=== PATIENT | female | born 1955 | race Caucasian/White ===

== ENCOUNTER 2017-12-01 17:24 | Emergency (ER) | payer SELFPAY, OTHER | END 2017-12-01 20:23 | disposition left against medical advice (07) | LOC: FTE 17:24 → E/R 20:23 | DX: Z53.21 Procedure and treatment not carried out due to patient leaving prior to being seen by health care provider (principal) ==

== ENCOUNTER 2018-04-08 19:38 | Emergency (ER) | payer OTHER ==
[2018-04-08 21:17] LABS: URINE BLOOD (Dip) POC Negative (NEGATIVE); URINE GLUCOSE (Dip) POC Negative (NEGATIVE); URINE KETONES (Dip) POC Negative (NEGATIVE); URINE LEUKOCYTE EST (Dip) POC Negative (NEGATIVE); URINE NITRITE (Dip) POC Negative (NEGATIVE); URINE TOTAL PROTEIN POC Negative (NEGATIVE)
== END 2018-04-08 21:57 | disposition home or self-care (01) ==
LOC: FTE 19:38
DX: J20.9 Acute bronchitis, unspecified (principal)
CPT/HCPCS: 71045; 81003; 99284-25

== ENCOUNTER 2018-04-21 00:50 | Emergency (ER) | payer OTHER | END 2018-04-21 02:59 | disposition home or self-care (01) | LOC: E/R 00:50 | DX: R05 Cough (principal) | CPT/HCPCS: 99283; Z7502 ==